=== PATIENT | male | born 1985 | race Caucasian/White ===

== ENCOUNTER 2025-01-01 14:44 | Emergency (ER) | payer MEDICAID ==
[~2025-01-01] VITALS: Ht 175.3 cm; Wt 123.0 kg
[2025-01-01 15:47] VITALS: O2SAT 98
[2025-01-01] MEDS: ACETAMINOPHEN 500MG TABLET PO ONE (19:55)
[2025-01-01] MEDS ORDERED: TOPUD MT (20:21)
[2025-01-01] MEDS ORDERED: DEXT15LI31 MT (20:21)
[2025-01-01] MEDS ORDERED: IBUP-2028 MT (20:21)
[2025-01-01 20:30] VITALS: BP 122/82; PULSE 79; RESP 16; TEMP 37; O2SAT 96
[2025-01-01 21:45] LABS: INFLUENZA TYPE A Presumptive Negative (Pres. Neg.)
[2025-01-01 21:46] LABS: INFLUENZA TYPE B Presumptive Negative (Pres. Neg.); RESPIRATORY SYNCYTIAL VIRUS Not Detected (Not Detectd)
== END 2025-01-01 20:34 | disposition home or self-care (01) ==
LOC: ER 14:44
DX: J06.9 Acute upper respiratory infection, unspecified (principal); Z79.899 Other long term (current) drug therapy; Z20.822 Contact with and (suspected) exposure to COVID-19
CPT/HCPCS: 71045; 87420; 87426; 87804; 99284